=== PATIENT | male | born 1965 | race Two or more races ===

== ENCOUNTER 2019-05-28 14:10 | Emergency (ER) | payer SELFPAY ==
[~2019-05-28] VITALS: Ht 175.3 cm; Wt 95.9 kg
[2019-05-28] MEDS ORDERED: HEPARIN SODIUM, PORCINE 5000 UNITS/1 ML VIAL ONE (14:20)
--- NOTE | 2019-05-28 14:20 | NUR ---
BIB SELF C/O CHEST PAIN PRESSURE LIKE NON RADIATING STARTED 30MINS AGO. PT AAOX4, ALSO C/O SOB " IT FEELS LIKE IT MY THROAT IS CLOSING ". DENIES DIZZINESS, N/V, ARM PAIN @ THIS TIME. DR. RYAN @ [facility]. PLACED ON CYBER OPS PLANNER, STEMI.
[2019-05-28] MEDS ORDERED: ASPIRIN 81 MG TAB.CHEW ONE (14:23)
--- NOTE | 2019-05-28 14:23 | NUR ---
FAXED EKG AND FACE SHEET TO [facility]
[2019-05-28] MEDS ORDERED: NTG 50 MG/D5W250 ML BOTTL 250 ML IV ONE ×2 (14:26→14:30)
[2019-05-28 14:27] LABS: BASOPHILS % (AUTO) 0.5 % (0.0-2.0); EOSINOPHILS % (AUTO) 1.3 % (0.0-6.0); HEMATOCRIT 51 % (39-51); HEMOGLOBIN 16.8 g/dL (13.5-17.5); LYMPHOCYTES # (AUTO) 3.9 /CMM (0.8-4.8); LYMPHOCYTES % (AUTO) 40.2 % (20.0-44.0); MEAN CORPUSCULAR HGB CONC 33 g/dl (31.0-36.0); MEAN CORPUSCULAR VOLUME 91 fL (80-96); MONOCYTES # (AUTO) 1.1 /CMM (0.1-1.30); MONOCYTES % (AUTO) 11.8 % (2.0-12.0); NEUTROPHILS # (AUTO) 4.4 /CMM (1.8-8.9); NEUTROPHILS % (AUTO) 46.2 % (43.0-81.0); PLATELET COUNT (AUTO) 318 /CMM (150-450); RED BLOOD CELL COUNT(AUTO) 5.67 MIL/uL (4.5-6.0); WHITE BLOOD COUNT (AUTO) 9.6 K/uL (4.3-11.0)
--- NOTE | 2019-05-28 14:27 | NUR ---
THEY HAVE THE EKG
[2019-05-28] MEDS ORDERED: HEPARIN SODIUM, PORCINE 5000 UNITS/1 ML VIAL IV ONE (14:30)
[2019-05-28] MEDS ORDERED: NITROGLYCERIN 0.4 MG/TAB BOTTLE SL ONE (14:30)
[2019-05-28] MEDS ORDERED: HEPARIN INFUSION/D5W 500 ML IV ONE ×2 (14:30→14:32)
[2019-05-28 14:32] LABS: POTASSIUM 3.2 mmol/L (3.5-5.1)
[2019-05-28] MEDS ORDERED: NITROGLYCERIN 0.4 MG/TAB BOTTLE ONE (14:32)
[2019-05-28] MEDS ORDERED: POTASSIUM CHLORIDE 20 MEQ TAB.PRT.SR PO ONE ×2 (14:48→15:00)
--- NOTE | 2019-05-28 14:50 | NUR ---
CARDIO FROM [facility] DR. MUHAMMAD [phone]
--- NOTE | 2019-05-28 14:52 | NUR ---
coags not ordered,not needed per dr mendoza but he said he will add them since we need baseline coags for heparin tx
[2019-05-28 15:00] VITALS: BP 135/91
[2019-05-28] MEDS ORDERED: ASPIRIN 81 MG TAB.CHEW PO ONE (15:00)
--- NOTE | 2019-05-28 15:24 | NUR ---
REPORT GIVEN TO CINDY CAST @ [facility] & CALLED LENS GAUGER & GAVE REPORT TO CINDY PACE. PT EN ROUTE TO [facility] VIA [facility] FOR CONT OF CARE.
--- NOTE | 2019-06-02 10:20 | NUR ---
LATE ENTRY: HEPARIN DRIP AT 1200 UNITS INFUSION CONTINUED DURING TRANSFER
== END 2019-05-28 15:40 | disposition short-term general hospital (02) ==
LOC: ER 14:13
DX: I21.9 Acute myocardial infarction, unspecified (principal); E87.6 Hypokalemia; Z86.711 Personal history of pulmonary embolism; Z98.890 Other specified postprocedural states
CPT/HCPCS: 36415; 71045; 80048; 84484; 85025; 85730; 93005 ×4; 96365; 96368; 96376; 99291; J1644 ×2; J3490